=== PATIENT | male | born 1950 | race Caucasian/White ===

== ENCOUNTER 2016-06-25 13:01 | Outpatient (CLI) | payer OTHER | END 2016-06-25 13:02 | disposition home or self-care (01) | LOC: NAV LAB 13:01 | PROVIDERS: ATTEND Podiatrist | DX: M10.00 Idiopathic gout, unspecified site (principal) | CPT/HCPCS: 36415; 84550 ==

== ENCOUNTER 2016-07-04 07:59 | Outpatient (CLI) | payer OTHER ==
[2016-07-04 09:55] LABS: ALT (SGPT) 20 U/L (8-55); AST (SGOT) 15 U/L (5-34); Albumin 4.4 g/dL (3.4-4.8); Alkaline Phosphatase 92 U/L (40-150); Bilirubin, Direct 0.4 mg/dL (0.1-0.3); Bilirubin, Total 1.2 mg/dL (0.2-1.2); Cardiac Risk 5.9 (Less than 4.5); Cholesterol 164 mg/dL (< 200 Desired); HDL Cholesterol 28 mg/dL (>60 Neg Risk); LDL Cholesterol, Calculated 74 mg/dL; Protein, Total 7.3 g/dL (5.8-8.1); Triglycerides 308 mg/dL (Less than 150)
[2016-07-04 10:22] LABS: Follow-up Chemistry Comp? YES; Follow-up Result - Chemistry REPORT FAXED
== END 2016-07-04 08:00 | disposition home or self-care (01) ==
LOC: NAV LAB 07:59
PROVIDERS: ATTEND Specialist
DX: E78.2 Mixed hyperlipidemia (principal); Z79.899 Other long term (current) drug therapy
CPT/HCPCS: 36415; 80061; 80076